=== PATIENT | male | born 1950 | race Hispanic/Latino ===

== ENCOUNTER 2017-05-14 09:39 | Outpatient (CLI) | payer MEDICARE, OTHER ==
--- NOTE | 2017-05-14 10:24 | RAD ---
PA AND LATERAL CHEST: History: Lung congestion. FINDINGS: Comparison is made with exam of 12-10-09. The heart size is normal. The aorta is tortuous. The lungs are expanded without focal areas of consol idation, pneumothorax, or pleural effusions. No acute osseous abnormality was seen. IMPRESSION: No radiographic evidence of acute cardiopulmonary process. POS: [facility]
== END 2017-05-14 09:40 | disposition home or self-care (01) ==
LOC: SCSRAD 09:39
PROVIDERS: ATTEND Family Medicine
DX: J18.0 Bronchopneumonia, unspecified organism (principal)
CPT/HCPCS: 71046